=== PATIENT | male | born 1950 | race Caucasian/White ===

== ENCOUNTER → 2021-05-19 | Outpatient (CLI) | payer MEDICARE ==
[2021-05-19 08:32] LABS: INR 1.3 (<1.2)
== END | disposition home or self-care (01) ==
LOC: LABWHC1 07:33
PROVIDERS: ATTEND Dentist Oral and Maxillofacial Surgery
DX: D68.9 Coagulation defect, unspecified (principal)
CPT/HCPCS: 36415; 85610